=== PATIENT | female | born 1970 | race Caucasian/White ===

== ENCOUNTER 2021-02-01 12:33 | Outpatient (RCR) | payer OTHER, SELFPAY ==
[2021-02-01 12:43] VITALS: BMI 23.1
== END 2021-04-23 12:01 | disposition home or self-care (01) ==
LOC: ANHDMC 12:33
PROVIDERS: PCP Internal Medicine; Visit Provider Internal Medicine
DX: E16.1 Other hypoglycemia (principal); R73.02 Impaired glucose tolerance (oral); Z71.3 Dietary counseling and surveillance
CPT/HCPCS: 97802